=== PATIENT | female | born 1985 | race Caucasian/White ===

== ENCOUNTER 2017-03-07 12:25 | Emergency (ER) | payer MEDICAID, OTHER ==
[~2017-03-07] VITALS: Ht 162.6 cm; Wt 111.2 kg
[2017-03-07 12:39] VITALS: BP 117/70
[2017-03-07 12:58] LABS: BASOPHILS # (AUTO) 0.1 K/uL (0.00-0.22); BASOPHILS % (AUTO) 1.2 % (0.0-2.0); EOSINOPHILS # (AUTO) 0.2 K/uL (0-0.4); EOSINOPHILS % (AUTO) 1.6 % (0.0-4.0); HEMATOCRIT 42.1 % (36-48); HEMOGLOBIN 13.9 g/dL (12.0-16.0); LYMPHOCYTES # (AUTO) 2.3 K/uL (2.5-16.5); LYMPHOCYTES % (AUTO) 23.6 % (20.5-51.1); MEAN CORPUSCULAR HEMOGLOBIN 28 pg (27-31); MEAN CORPUSCULAR HGB CONC 33 g/dL (33-37); MEAN CORPUSCULAR VOLUME 85 fL (80-94); MONOCYTES # (AUTO) 0.6 K/uL (0.8-1.0); MONOCYTES % (AUTO) 6.1 % (1.7-9.3); NEUTROPHILS # (AUTO) 6.6 K/uL (1.8-7.7); NEUTROPHILS % (AUTO) 67.5 % (42.2-75.2); PLATELET COUNT (AUTO) 274 K/uL (140-450); RED BLOOD CELL COUNT(AUTO) 4.98 MIL/uL (4.20-5.40); RED CELL DISTRIBUTION WIDTH 12.9 % (11.6-13.7); WHITE BLOOD COUNT (AUTO) 9.8 K/uL (4.8-10.8)
--- NOTE | 2017-03-07 13:02 | NUR ---
PATIENT TAKENT TO U/S VIA WHEELCHAIR AT THIS TIME.
[2017-03-07 14:02] LABS: APPEARANCE,URINE CLEAR (CLEAR); BILIRUBIN,URINE NEGATIVE (NEGATIVE); BLOOD, URINE 3+ (NEGATIVE); COLOR,URINE YELLOW (YELLOW); LEUKOCYTE ESTERASE ,URINE NEGATIVE (NEGATIVE); NITRITE, URINE NEGATIVE (NEGATIVE); UGLUCOSE NEGATIVE (NEGATIVE)
--- NOTE | 2017-03-07 14:27 | NUR ---
Patient to bed 7 at this time.
[2017-03-07 14:31] LABS: RBC,URINE 0-5 (RARE) /HPF (0-5); WBC,URINE NONE SEEN /HPF (0-5)
--- NOTE | 2017-03-07 14:40 | NUR ---
31F BIB SELF WITH C/O VAGINAL BLEEDING WITH 1/10 "CRAMPING" NON RADIATING PAIN TO LOWER BL ABD AND SUPRPUBIC AREA X 1 DAY AROUND 1200; PT STATES BLEEDING IS MODERATE WITH BRIGHT RED BLOOD; PT STATES THE BLEEDING IS LIKE SHE "IS ON HER MENES"; ; LAST MENES IS 01/17/17; DENIES N/V/D; SKIN IS PINK/WARM/DRY; AOX4 WITH EVEN AND STEADY GAIT; RR ARE EVEN AND UNLABORED; VSS; PATIENT POSITIONED FOR COMFORT; HOB ELEVATED; BEDRAILS UP X2; ER MD MADE AWARE OF PT STATUS. ALL NEEDS MET AT THIS TIME. WILL CONTINUE TO MONITOR.
--- NOTE | 2017-03-07 16:00 | NUR ---
PT GIVEN RHOGAM PRODUCT-RHOPHYLAC 1500IU VIA IM TO RIGHT BUTTOCK
--- NOTE | 2017-03-07 16:15 | NUR ---
NADR TO RHOGAM IM INJECTION
[2017-03-07 16:40] VITALS: BP 120/74
--- NOTE | 2017-03-07 16:40 | NUR ---
Patient discharged with v/s stable. Written and verbal after care instructions given and explained. Patient verbalized understanding. Ambulatory with to car. All questions addressed prior to discharge. Advised to follow up with PMD.
== END 2017-03-07 16:40 | disposition home or self-care (01) ==
LOC: MED 12:25 → EDBD 12:25 → MED 16:40
DX: O20.0 Threatened abortion (principal); Z3A.01 Less than 8 weeks gestation of pregnancy
CPT/HCPCS: 36415; 76801; 81001; 81025; 84702; 85025; 86886; 86900; 86901; 99285